=== PATIENT | female | born 1960 | race American Indian/Alaskan Native ===

== ENCOUNTER 2017-12-09 12:35 | Outpatient (CLI) | payer OTHER ==
--- NOTE | 2017-12-10 00:05 | XRay Report ---
FINAL REPORT EXAM: XR SHOULDER 2+V LT HISTORY: VERTIGO WITH DIZZINESS AND FREQUENT FALLS,NEUROPATHY IN BOTH LEGS TECHNIQUE: Three views of the left shoulder: External rotation, internal rotation and transscapular Y-views. PRIORS: None. FINDINGS: There is no acute fracture or dislocation. Mild degenerative changes of the glenohumeral joint are present consisting of inferior osteophytes of the humeral head and glenoid and a subchondral cyst is present in the humeral head. Additional moderate acromioclavicular joint degenerative changes are present with marginal osteophytes. The coracoclavicular and acromioclavicular intervals are preserved. No displaced rib fracture no or pneumothorax. IMPRESSION: No acute fracture or dislocation. Mild glenohumeral and moderate acromioclavicular joint degenerative changes.
--- NOTE | 2017-12-10 00:09 | XRay Report ---
FINAL REPORT EXAM: XR KNEE 1-2V RT HISTORY: NEUROPATHY IN BOTH LEGS WITH PAIN AND NUMBNESS,FREQUENT FALLS TECHNIQUE: Two views of the right knee: AP and lateral projections. PRIORS: None. FINDINGS: There is no radiographic evidence of acute fracture or dislocation. Moderate medial compartment degenerative changes noting marginal osteophytes and small subchondral cystic changes of the medial femoral condyle. Mild degenerative changes of the patellofemoral articulation noting marginal osteophytes. No significant knee joint effusion or ossified intra-articular body. IMPRESSION: No acute osseous abnormality. Moderate medial compartment and mild patellofemoral compartment degenerative changes.
== END 2017-12-09 12:36 | disposition home or self-care (01) ==
LOC: PF 12:35
PROVIDERS: ATTEND Internal Medicine
DX: M17.11 Unilateral primary osteoarthritis, right knee (principal); M19.012 Primary osteoarthritis, left shoulder; M25.812 Other specified joint disorders, left shoulder; F32.3 Major depressive disorder, single episode, severe with psychotic features; F41.9 Anxiety disorder, unspecified; I34.1 Nonrheumatic mitral (valve) prolapse; G57.93 Unspecified mononeuropathy of bilateral lower limbs; I49.9 Cardiac arrhythmia, unspecified; G47.00 Insomnia, unspecified; R20.0 Anesthesia of skin; R00.0 Tachycardia, unspecified; R42 Dizziness and giddiness; R29.6 Repeated falls; Z79.899 Other long term (current) drug therapy
CPT/HCPCS: 94010

== ENCOUNTER 2018-06-04 18:32 | Emergency (ER) | payer OTHER ==
[2018-06-05] MEDS ORDERED: GEODON IM ONE ×2 (02:18)
--- NOTE | 2018-06-05 05:12 | Emergency Department Report ---
HPI - General Chief Complaint: Psych Time Seen by Provider: 06/05/18 04:54 - HPI HPI: The patient is a 57-year-old female who presents for evaluation of mental health. The patient has exhibited bizarre behavior for the past day. The patient continues to repeat, 'I'll tell you what's going to happen, I'm suppose to be at [facility], everybody's fired." She also states that something is in her spine. The patient denies fever, headache, unexplained weight loss or weight gain, heat or cold intolerance, skin, hair, or nail changes, neuro deficits, homicidal ideations, or auditory or visual hallucinations. ED Past Medical Hx - Social History Smoking Status: Unknown if ever smoked ED Review of Systems ROS: Stated complaint: PSYCH Other details as noted in HPI Constitutional: denies: fever ENT: denies: throat or neck pain Respiratory: denies: cough, shortness of breath Cardiovascular: denies: chest pain Endocrine: denies unexplained weight loss or gain Gastrointestinal: denies: abdominal pain, nausea Genitourinary: denies: dysuria Musculoskeletal: denies: leg swelling Skin: denies: rash Neurological: denies: headache Hematological/Lymphatic: denies: easy bleeding or easy bruising Psych: denies sadness or hopelessness Physical Exam - Physical Exam Vital Signs: Vital Signs 06/04/18 06/04/18 20:49 20:54 Temperature 98.8 F 98.8 F Pulse Rate 91 H 91 H Respiratory 20 20 Rate Blood Pressure 140/90 Blood Pressure 140/90 [Left] O2 Sat by Pulse 97 97 Oximetry Physical Exam: General: well-nourished, well-developed, no acute distress Head: Normocephalic, atraumatic Eyes: normal sclera ENT: Mucous membranes are pink and moist Neck: trachea midline, neck supple, No neck stiffness, no cervical adenopathy Respiratory: Breath sounds equal bilaterally, no wheezing, rales, or rhonchi Cardio: S1 and S2 present, no murmurs, rubs, gallops, capillary refill is brisk Abdomen: Normoactive bowel sounds, soft abdomen, no rigidity, no guarding or rebound tenderness Musc: No pitting edema Skin: No rash Neuro: no facial drooping, normal speech Psych: Flat affect, patient delusional, poor insight, disorganized speech ED Course Vital Signs 06/04/18 06/04/18 20:49 20:54 Temperature 98.8 F 98.8 F Pulse Rate 91 H 91 H Respiratory 20 20 Rate Blood Pressure 140/90 Blood Pressure 140/90 [Left] O2 Sat by Pulse 97 97 Oximetry ED Medical Decision Making - Medical Decision Making The patient was seen and examined by myself. The patient is placed on a hair rooting machine operator and continuous pulse ox. On initial evaluation, the patient was found to be in no distress. Labs are obtained. Lab results are grossly unremarkable. The patient is medically clear. Mental health is consulted. Mental health evaluates the patient and agrees that the patient is exhibiting findings consistent with acute psychosis. A 1013 is completed. The patient will be admitted to a psychiatric facility once bed placement is obtained. Critical care attestation.: If time is entered above; I have spent that time in minutes in the direct care of this critically ill patient, excluding procedure time. ED Disposition Clinical Impression: Acute psychosis Disposition: DC/TX-65 PSY HOSP/PSY UNIT Is pt being admited?: No Does the pt Need Aspirin: No Condition: Stable Referrals: ANILA GOLDSTEIN MD [Primary Care Provider] - 3-5 Days Time of Disposition: 04:57
[2018-06-05] MEDS ORDERED: TYLENOL PO PRN (05:44)
[2018-06-05] MEDS ORDERED: ALUM-MAG HYDROX-SIMETH 200-200-20MG/5ML PO PRN (05:44)
[2018-06-05] MEDS ORDERED: MILK OF MAGNESIA PO PRN (05:44)
[2018-06-05 06:02] LABS: BUN/Creatinine Ratio 115; Blood Urea Nitrogen 23 mg/dL (7-17); Calcium 9.9 mg/dL (8.4-10.2); Hemolysis Index 36
[2018-06-05 06:27] LABS: Hematocrit 43.2 % (30.3-42.9); Mean Corpuscular HGB Conc 33 % (30-34); Mean Corpuscular Hemoglobin 37 pg (28-32); Mean Corpuscular Volume 114 fl (79-97); Platelet Count 188 K/mm3 (140-440); Red Blood Count 3.81 M/mm3 (3.65-5.03); Red Cell Distribution Width 16.4 % (13.2-15.2)
[2018-06-05 06:38] LABS: Basophils % (Auto) 0.5 % (0.0-1.8); Eosinophils % (Auto) 0.7 % (0.0-4.3); Lymphocytes # (Auto) 2.9 K/mm3 (1.2-5.4); Lymphocytes % (Auto) 40.1 % (13.4-35.0); Monocytes # (Auto) 0.6 K/mm3 (0.0-0.8); Monocytes % (Auto) 8.9 % (0.0-7.3)
[2018-06-05] MEDS ORDERED: ATIVAN ONE (10:06)
[2018-06-05] MEDS ORDERED: ATIVAN IM ONE (10:15)
--- NOTE | 2018-06-05 13:52 | Consultation ---
History of Present Illness - Reason for Consult Reason for consult: agitation and possible psychosis - History of Present Psychiatric Illness This is a 57-year-old female presenting secondary to reports that she has been exhibiting bizarre behaviors. Patient formally denies any past psychiatric history. Per review the medical record, patient has been fairly agitated and required several when necessary medications to manage her behaviors. Consequently, patient has been sedate during several attempts to assess her. On my examination, patient continued to be fairly sedate and noncooperative. Patient noted that she had something in her spine and broken her neck. It's unclear when the symptoms initiated. Nonetheless, patient is fairly uncooperative and not wanting to continue the assessment. Patient requested to speak with the psychiatric social worker supervisor. Past psychiatric history unknown. Current psychiatric medications unknown Patient allergic to ibuprofen Medical history unremarkable per review of chart Social history unknown. Patient does not know where she resides. On mental status examination, this is a 57-year-old female appears stated age dressed in hospital gown mildly disheveled with limited eye contact and mostly oppositional examination. Sensorium is distracted almost sedate. Mild psychomotor retardation with possible dystonia in neck. Mood appears dysphoric and affect is congruent speech is slow soft. Thought process appears perseverative and mildly disorganized. Thought content impoverished preoccupied. It's unclear patient is responding to internal stimuli or not. Consultation tension impaired. Insight and judgment poor. ADLs appear independent but are poor currently. Patient currently denying suicidal or homicidal thoughts; however, patient is fairly evasive and poorly cooperating during clinical assessment. Assessment: Currently this 57-year-old female is presenting with some form of psychosis of unknown etiology. Plan: Patient might be having some acute dystonia secondary to administration of Geodon. At the current time I recommend the discontinuation of any psychotic medications for the management of agitation. Patient can continue take medications such as Benadryl and/or Ativan if patient becomes acutely agitated. We'll reassess the patient when patient is more cooperative and ask for the psychiatric social worker supervisor to see the patient. Medications and Allergies Allergies Allergy/AdvReac Type Severity Reaction Status Date / Time ibuprofen Allergy CAUSES Verified 06/05/18 10:05 STOMACH BLEEDING Active Meds: Active Medications Acetaminophen (Tylenol) 650 mg PO Q4HR PRN PRN Reason: Pain MILD(1-3)/Fever >100.5/RON Al Hydrox/Mg Hydrox/Simethicone (Alum-Mag Hydrox-Simeth [id number]/5ml) 30 ml PO Q4HR PRN PRN Reason: Indigestion Magnesium Hydroxide (Milk Of Magnesia) 30 ml PO Q12HR PRN PRN Reason: Constipation Mental Status Exam - Vital signs Last Vital Signs Temp 98.4 F 06/05/18 13:13 Pulse 62 06/05/18 13:13 Resp 20 06/05/18 13:13 BP 165/62 06/05/18 13:13 Pulse Ox 97 06/05/18 13:13 Results Result Diagrams: 06/05/18 05:20 06/05/18 05:20 Abnormal lab results 06/05/18 06/05/18 06/05/18 Range/Units 05:20 05:20 05:20 Hct 43.2 H (30.3-42.9) % MCV 114 H (79-97) fl MCH 37 H (28-32) pg RDW 16.4 H (13.2-15.2) % Lymph % (Auto) 40.1 H (13.4-35.0) % Douglas % (Auto) 8.9 H (0.0-7.3) % Chloride 109.7 H (98-107) mmol/L Carbon Dioxide 18 L (22-30) mmol/L BUN 23 H (7-17) mg/dL Creatinine < 0.2 L (0.7-1.2) mg/dL Salicylates < 0.3 L (2.8-20.0) mg/dL Acetaminophen (10.0-30.0) ug/mL 06/05/18 Range/Units 05:20 Hct (30.3-42.9) % MCV (79-97) fl MCH (28-32) pg RDW (13.2-15.2) % Lymph % (Auto) (13.4-35.0) % Douglas % (Auto) (0.0-7.3) % Chloride (98-107) mmol/L Carbon Dioxide (22-30) mmol/L BUN (7-17) mg/dL Creatinine (0.7-1.2) mg/dL Salicylates (2.8-20.0) mg/dL Acetaminophen < 5.0 L (10.0-30.0) ug/mL All other labs normal.
[2018-06-05] MEDS: NORVASC PO SCH (23:00)
[2018-06-06 00:57] LABS: Bilirubin,Urine NEG (Negative); Blood,Urine NEG (Negative); Mucus,Urine 3+ /HPF
[2018-06-06 00:58] LABS: Color,Urine Dark Yellow (Yellow)
[2018-06-06 01:04] LABS: Amphetamine Screen,Urine PRESUMPTIVE NEGATIVE; Benzodiazepines Screen,Urine PRESUMPTIVE NEGATIVE; Cocaine Screen,Urine PRESUMPTIVE NEGATIVE; Opiate Screen,Urine PRESUMPTIVE NEGATIVE
[2018-06-06 01:17] LABS: Cannabinoid Screen,Urine PRESUMPTIVE POSITIVE; Methadone Screen,Urine PRESUMPTIVE POSITIVE
[2018-06-06] MEDS: NORVASC PO SCH (12:19)
--- NOTE | 2018-06-06 16:54 | Progress Note ---
Subjective - Reason for Consult Consult date: 06/06/18 Reason for consult: follow up - Chief Complaint Chief complaint: Ms. Zurita is a 57-year-old AA female who presented to the ER secondary to reports that she has been exhibiting bizarre behaviors. She admits to being uncooperative when the psychiatrist attempted to speak with her 2 days ago. She states she was overwhelmed. She states she felt something in her neck and back "shatter." She questions if she had a seizure but does not have a history. She has been medically cleared by the ER physician. She talked about how the multiple losses of loved ones has contributed to her emotional state. She states she normally takes celexa, vistaril, and metoprolol. She goes to [facility] in [place] for mental health services since 12/2017. She denies suicidal or homicidal ideation. She states her recent behavior was brought on by her emotional state. She states her body "locked up." She states she has " leg issues." She has a wide based, slow, shuffling gait. She states she walks like this when she is having an emotional episode. Past psychiatric history: depression She has been on antidepressants for the last few years, since 2013. Past medication trials: zoloft in 2014- "zombie" Mental Status Exam - Vital signs Last Vital Signs Temp 98.9 F 06/06/18 10:00 Pulse 103 H 06/06/18 12:19 Resp 16 06/06/18 10:00 BP 126/79 06/06/18 12:19 Pulse Ox 100 06/06/18 10:00 - Exam Orientation: time, place, person Affect: depressed Mood: congruent with affect Thought content: other (no suicidal or homicidal ideation) Thought Process: Intact Perceptions: none Speech: normal rate and pattern Concentration: focused Motor activity: normal Level of consciousness: alert Memory: Intact Sleep Symptoms: Difficulty Falling Asleep Interaction: cooperative Assessment and Plan Assessment: major depressive disorder. She denies suicidal or homicidal ideation. She denies psychotic symptoms. She is alert and oriented x 4. It is unclear what precipitated the bizarre behavior. She reports slow shuffling gait. This is not new per her report. cannot r/o dystonic reaction to prn med urine drug screen is positive for methadone and thc Plan: Hold antipsychotic medications for the management of agitation. She can take medications such as Benadryl and/or Ativan if patient becomes acutely agitated. She is recommended to follow up with neurologist as an outpatient to address concerns with gait. Gait abnormalities are reported as chronic, not acute. Staffed with Dr. Marcio Grider.
[2018-06-07] MEDS: NORVASC PO SCH (10:55)
--- NOTE | 2018-06-07 16:47 | Progress Note ---
Subjective - Reason for Consult Consult date: 06/07/18 Reason for consult: follow up - Chief Complaint Chief complaint: She is alert and oriented x 4 today and the assessment on 06/06/2018 is consistent with today's assessment. Ms. Zurita is a 57-year-old AA female who presented to the ER secondary to reports that she has been exhibiting bizarre behaviors. She admits to being uncooperative when the psychiatrist attempted to speak with her 3 days ago. She states she was overwhelmed. She states she felt something in her neck and back "shatter." She questions if she had a seizure but does not have a history. She has been medically cleared by the ER physician. She talked about how the multiple losses of loved ones has contributed to her emotional state. She goes to [facility] in [place] for mental health services since 12/2017. She denies suicidal or homicidal ideation. She states her recent behavior was brought on by her emotional state. She states her body "locked up." She states that 2 years ago she was told she has a "wide gait of unknown etiology." She has not seen a neurologist. Mental Status Exam - Vital signs Last Vital Signs Temp 98.2 F 06/07/18 12:35 Pulse 103 H 06/07/18 12:35 Resp 16 06/07/18 12:35 BP 131/82 06/07/18 12:35 Pulse Ox 99 06/07/18 12:35 - Exam Narrative exam: Mental status exam: Orientation: time, place, person Affect: congruent Mood: calm Thought content: other (denies suicidal or homicidal ideation) Thought Process: linear Perceptions: none Speech: normal rate and pattern Concentration: focused Motor activity: no abnormal movement. wide based gait Level of consciousness: alert Memory: Intact Sleep Symptoms: fair Interaction: cooperative Insight: fair Judgment: fair Assessment and Plan Assessment: major depressive disorder. She denies suicidal or homicidal ideation. She denies psychotic symptoms. She is alert and oriented x 4. She questions if she has PTSD. Discuss this with outpatient provider. It is unclear what precipitated the bizarre behavior. She reports slow, wide, gait. This is not new per her report. cannot r/o dystonic reaction to prn med urine drug screen is positive for methadone and thc Plan: Hold antipsychotic medications for the management of agitation. She can take medications such as Benadryl and/or Ativan if patient becomes acutely agitated. She is recommended to follow up with neurologist as an outpatient to address concerns with gait. Gait abnormalities are reported as chronic, not acute. She is recommended to follow up with [facility] this week for psychiatry and counseling. Medications recommendations are deferred to [facility] psychiatrist. Staffed with Dr. Marcio Grider.
--- NOTE | 2018-06-08 09:55 | Progress Note ---
Subjective - Reason for Consult Consult date: 06/08/18 Reason for consult: Psychiatry Follow-up - Chief Complaint Chief complaint: "I am so much better" 57-year-old AA female who presented to the ER secondary to reports that she has been exhibiting bizarre behaviors. She admits to being uncooperative when the psychiatrist attempted to speak with her a couple days ago. Today the patient is calm and cooperative during the assessment. She stated that she feel so much better "mentally." She stated that a person came back into her life recently. She stated that person has caused her a lot "problems." She stated that she has worked out her issues and look forward to be discharged. She stated that she will follow up with [facility] for outpatient psy services. She denies SI/HI's and AVH's. She stated that she plan to see a neurologist because of her "wide gait." Mental Status Exam - Vital signs Last Vital Signs Temp 98.5 F 06/07/18 19:45 Pulse 98 H 06/07/18 19:45 Resp 16 06/07/18 19:45 BP 156/71 06/07/18 19:45 Pulse Ox 98 06/07/18 19:45 - Exam Narrative exam: MSE: Appearance: calm, cooperative Behavior: regular eye contact Speech: regular rate and tone Mood: "okay" Affect: congruent to mood Thought Process: linear Thought Content: denies SI/HI's and AVH's Motor Activity: sitting up in the bed Cognition: A/O x 3 Insight: appropriate Judgment: appropriate Assessment and Plan Impression: MDD. Cannabis Use DO. The patient is calm and cooperative during the assessment. The patient is positive for methadone. Recommendation/Plan: Rescind 1013. Dispo: The patient can follow up with [facility] for outpatient psy services. Medication recommendations are deferred to the [facility] psychiatrist. Will staff with Dr. Marcio Grider.
[2018-06-08] MEDS: NORVASC PO SCH (11:13)
--- NOTE | 2018-06-08 13:23 | Emergency Department Report ---
Blank Doc - Documentation Documentation: Patient is a 57-year-old female who came in for abnormal behavior. Patient was seen by psychiatry today and 1013 was rescinded. Patient is not homicidal suicidal or having any agitation at this time. Patient states she had someone come back into her life that was causing her mental anguish. Patient will be discharged home with follow-up with [facility] for outpatient psychiatric services.
[2018-06-08 15:16] VITALS: BP 138/96
== END 2018-06-08 15:29 | disposition home or self-care (01) ==
LOC: ED 18:32 → EEVIPCON 18:32 → ED 06-08 15:29
DX: F32.9 Major depressive disorder, single episode, unspecified (principal); F12.10 Cannabis abuse, uncomplicated; F23 Brief psychotic disorder
CPT/HCPCS: 96372; 99285; J2060; J3486